=== PATIENT | female | born 1995 | race Caucasian/White ===

== ENCOUNTER 2016-10-27 21:32 | Emergency (ER) | payer OTHER ==
[~2016-10-27] VITALS: Ht 154.9 cm; Wt 84.1 kg
[~2016-10-27 21:32] MED LIST: Bactrim,Septra DS 80 PO; CONCERTA36 MG PO; DIVALPROEX SOD500 M1 PO; FLEXERIL10 MG PO; FLONASE16 G1 BOTH NARES; LORATADINE10 M2 PO; MELATONIN3 MG PO; METHYLPHENIDATE27 MG PO; MONTELUKAST SOD10 MG PO; MUCUS ER600 MG PO; NAPROSYN500 MG PO; NAPROXEN500 MG PO; NEXIUM 24HR20 M1 PO; ORTHO TRI-CY1 TABLE1 PO; RIZATRIPTAN10 M1 PO; SEROQUEL50 MG PO; VITAMIN D31000 UNIT PO; ZOLOFT50 MG PO; [UNRECOGNIZED DRUG - OTHER] PO
[2016-10-27 22:55] LABS: HEMATOCRIT 34.8 % (36.0-46.0); MCH 26.3 PG (29.0-34.0); MCHC 32.2 G/DL (30.0-36.0); MCV 81.7 FL (83-99); PLATELET COUNT 285 K/uL (156-360); RBC DIS.WIDTH-CV 13.2 % (11.8-14.6); RBC DIS.WIDTH-SD 39.3 % (39-53); RED BLOOD COUNT 4.26 M/uL (3.80-5.20); WHITE BLOOD COUNT 6.8 K/uL (4.1-10.2)
[2016-10-27 22:57] LABS: CHLORIDE 104 mEq/L (99-109); POTASSIUM 3.8 mEq/L (3.7-5.4); SODIUM 139 mEq/L (136-147)
[2016-10-27 22:58] LABS: GLUCOSE 99 mg/dL (70-99)
[2016-10-27 23:00] LABS: ANION GAP 11 MEQ/L (2-14)
[2016-10-27 23:02] LABS: GFR ESTIMATE (CALCULATED) > 59 mL/min/
[2016-10-27 23:03] LABS: UREA NITROGEN (BUN) 13 mg/dL (9-23)
[2016-10-27 23:10] LABS: QUANTITATIVE HCG < 4.0 MIU/ML
[2016-10-27 23:37] LABS: D-DIMER ELISA 0.19 mg/L FEU (< 0.57)
[2016-10-27 23:38] LABS: ADD MIUA? YES; BILIRUBIN NEGATIVE; BLOOD MODERATE; COLOR YELLOW ((YELLOW)); GLUCOSE (STRIP) NEGATIVE; KETONES TRACE; LEUKOCYTES NEGATIVE; NITRITE NEGATIVE; PROTEIN (STRIP) NEGATIVE; SPECIFIC GRAVITY 1.027 (1.000-1.030); UROBILINOGEN 0.2 MG/DL (0.2-1.0)
[2016-10-27 23:40] LABS: SERUM ETHYL ALCOHOL < 10 mg/dL
[2016-10-27 23:43] LABS: SALICYLATE < 5.0 MG/DL (15-30)
[2016-10-27 23:52] LABS: ADD MEDTOX COMMENT Y; AMPHETAMINE PRESUMPTIVE POSITIVE (500 ng/mL); BARBITURATES NEGATIVE (200 ng/mL); BENZODIAZEPINES NEGATIVE (150 ng/mL); COCAINE NEGATIVE (150 ng/mL); INTERNAL CONTROLS VALID? YES; METHADONE NEGATIVE (200 ng/mL); METHAMPHETAMINE NEGATIVE (500 ng/mL); OPIATES (MORPHINE) NEGATIVE (100 ng/mL); OXYCODONE NEGATIVE (100 ng/mL); PHENCYCLIDINE NEGATIVE (25 ng/mL); PROPOXYPHENE NEGATIVE (300 ng/mL); THC CANNABINOIDS NEGATIVE (50 ng/mL); TRICYCLIC ANTIDEPRESSANTS NEGATIVE (300 ng/mL)
[2016-10-28 00:02] LABS: AMORPHOUS PHOSPHATE CRYSTALS 2+; BACTERIA 1+ /HPF; CASTS NONE SEEN /LPF; CRYSTALS PRESENT; EPITHELIAL CELLS RARE /HPF; MUCUS NONE SEEN /LPF; RED BLOOD CELLS NONE SEEN /HPF (0-5); UCUL ADDED? NO; WHITE BLOOD CELLS RARE /HPF (0-5)
[2016-10-28] MEDS ORDERED: CIPRO250 MG PO (02:16)
[2016-10-28 02:34] VITALS: BP 122/72
[2016-10-28] MEDS ORDERED: ANUSOL HC,ANUCO25 MG PR (22:56)
[2016-10-28] MEDS ORDERED: MIRALAX255 GM PO (22:56)
== END 2016-10-28 02:36 | disposition home or self-care (01) ==
LOC: EME 21:32
PROVIDERS: Emergency Medicine
DX: N30.00 Acute cystitis without hematuria (principal); R55 Syncope and collapse; E86.0 Dehydration; F90.9 Attention-deficit hyperactivity disorder, unspecified type
CPT/HCPCS: 71020; 80048; 80164; 81003; 84702; 84999; 85027; 85379; 93005; 99281; 99285; G0480

== ENCOUNTER 2016-10-28 20:33 | Emergency (ER) | payer OTHER ==
[~2016-10-28] VITALS: Ht 152.4 cm; Wt 82.1 kg
[~2016-10-28 20:33] MED LIST changes: +CIPRO250 MG PO
[2016-10-28 21:05] LABS: HEMATOCRIT 36.4 % (36.0-46.0); MCH 27.1 PG (29.0-34.0); MCHC 33.2 G/DL (30.0-36.0); MCV 81.4 FL (83-99); MEAN PLAT.VOLUME 9.6 uM^3 (9.5-12.4); PLATELET COUNT 293 K/uL (156-360); RBC DIS.WIDTH-CV 13.1 % (11.8-14.6); RBC DIS.WIDTH-SD 37.3 % (39-53); RED BLOOD COUNT 4.47 M/uL (3.80-5.20); WHITE BLOOD COUNT 7.8 K/uL (4.1-10.2)
[2016-10-28 21:26] LABS: CHLORIDE 102 mEq/L (99-109)
[2016-10-28 21:27] LABS: SODIUM 137 mEq/L (136-147)
[2016-10-28 21:28] LABS: GLUCOSE 97 mg/dL (70-99)
[2016-10-28 21:30] LABS: ANION GAP 8 MEQ/L (2-14)
[2016-10-28 21:32] LABS: GFR ESTIMATE (CALCULATED) > 59 mL/min/
[2016-10-28 21:33] LABS: UREA NITROGEN (BUN) 11 mg/dL (9-23)
[2016-10-28 21:40] LABS: QUANTITATIVE HCG < 4.0 MIU/ML
[2016-10-28] MEDS ORDERED: MIRALAX255 GM PO (22:56)
[2016-10-28] MEDS ORDERED: ANUSOL HC,ANUCO25 MG PR (22:56)
[2016-10-28 23:11] VITALS: BP 136/85
[2016-10-29 12:41] LABS: POC NON-PRINT COM 1 ND
== END 2016-10-28 23:21 | disposition home or self-care (01) ==
LOC: EME 20:33
PROVIDERS: Physician Assistant
DX: K64.8 Other hemorrhoids (principal); K62.5 Hemorrhage of anus and rectum; Z87.442 Personal history of urinary calculi
CPT/HCPCS: 80048; 82272; 84702; 85027; 86850; 86900; 86901; 99281; 99285

== ENCOUNTER 2017-02-07 10:17 | Emergency (ER) | payer OTHER ==
[~2017-02-07] VITALS: Ht 154.9 cm; Wt 83.8 kg
[~2017-02-07 10:17] MED LIST changes: +ANUSOL HC,ANUCO25 MG PR; +MIRALAX255 GM PO
[2017-02-07 11:58] LABS: EOSINOPHIL (%) 0.4 % (0-5); HEMATOCRIT 32.8 % (36.0-46.0); IMMATURE GRANULOCYTE (%) 0.4 % (0.0-0.7); INSTRUMENT ABS NEUTROPHIL CT 5.5 K/uL; LYMPHOCYTE COUNT 2.4 K/uL (1.0-2.8); MCH 24.8 PG (29.0-34.0); MCHC 31.4 G/DL (30.0-36.0); MCV 78.8 FL (83-99); MEAN PLAT.VOLUME 10.1 uM^3 (9.5-12.4); MONOCYTE (%) 6.4 % (3-12); MONOCYTE COUNT 0.5 K/uL (0-0.8); NEUTROPHIL (%) 64.3 % (45-76); NEUTROPHIL COUNT 5.5 K/uL (1.8-6.4); PLATELET COUNT 343 K/uL (156-360); RBC DIS.WIDTH-CV 13.5 % (11.8-14.6); RBC DIS.WIDTH-SD 38.5 % (39-53); RED BLOOD COUNT 4.16 M/uL (3.80-5.20); WHITE BLOOD COUNT 8.5 K/uL (4.1-10.2)
[2017-02-07] MEDS ORDERED: SENNA-DOCUSATE1 EAC1 PO (12:06)
[2017-02-07] MEDS ORDERED: PREPARATION H C51 GM PR (12:06)
[2017-02-07 12:18] VITALS: BP 137/89
== END 2017-02-07 12:20 | disposition home or self-care (01) ==
LOC: EME 10:17
PROVIDERS: Emergency Medicine
DX: K64.9 Unspecified hemorrhoids (principal); K92.2 Gastrointestinal hemorrhage, unspecified; Z88.6 Allergy status to analgesic agent; Z88.5 Allergy status to narcotic agent; J45.909 Unspecified asthma, uncomplicated; Z87.442 Personal history of urinary calculi
CPT/HCPCS: 85025; 85027; 99281; 99283

== ENCOUNTER 2017-04-05 21:14 | Emergency (ER) | payer OTHER ==
[~2017-04-05] VITALS: Ht 162.6 cm; Wt 90.1 kg
[~2017-04-05 21:14] MED LIST changes: +PREPARATION H C51 GM PR; +SENNA-DOCUSATE1 EAC1 PO
[2017-04-05 23:10] LABS: HEMATOCRIT 35.2 % (36.0-46.0); MCH 23.1 PG (29.0-34.0); MCHC 30.1 G/DL (30.0-36.0); MCV 76.9 FL (83-99); MEAN PLAT.VOLUME 9.9 uM^3 (9.5-12.4); PLATELET COUNT 406 K/uL (156-360); RBC DIS.WIDTH-CV 14.2 % (11.8-14.6); RBC DIS.WIDTH-SD 38.8 % (39-53); RED BLOOD COUNT 4.58 M/uL (3.80-5.20); WHITE BLOOD COUNT 9.7 K/uL (4.1-10.2)
[2017-04-05 23:26] LABS: CHLORIDE 104 mEq/L (99-109); POTASSIUM 3.9 mEq/L (3.7-5.4); SODIUM 138 mEq/L (136-147)
[2017-04-05 23:28] LABS: GLUCOSE 107 mg/dL (70-99)
[2017-04-05 23:29] LABS: ANION GAP 10 MEQ/L (2-14)
[2017-04-05 23:30] LABS: TOTAL BILIRUBIN 0.2 mg/dL (0.0-1.0)
[2017-04-05 23:31] LABS: ALKALINE PHOSPHATASE 96 IU/L (3-129)
[2017-04-05 23:32] LABS: GFR ESTIMATE (CALCULATED) > 59 mL/min/
[2017-04-05 23:33] LABS: UREA NITROGEN (BUN) 18 mg/dL (9-23)
[2017-04-05 23:35] LABS: LIPASE 43 U/L (1.0-51.0)
[2017-04-05 23:43] LABS: QUANTITATIVE HCG < 4.0 MIU/ML
[2017-04-06 00:02] LABS: ADD MIUA? YES; BILIRUBIN NEGATIVE; BLOOD NEGATIVE; COLOR YELLOW ((YELLOW)); GLUCOSE (STRIP) NEGATIVE; KETONES NEGATIVE; LEUKOCYTES NEGATIVE; NITRITE NEGATIVE; PROTEIN (STRIP) NEGATIVE; SPECIFIC GRAVITY 1.024 (1.000-1.030); UROBILINOGEN 0.2 MG/DL (0.2-1.0)
[2017-04-06 00:16] LABS: BACTERIA 1+ /HPF; CALCIUM OXALATE CRYSTALS 3+ /HPF; EPITHELIAL CELLS 1+ /HPF; MUCUS TRACE /LPF; RED BLOOD CELLS 0-5 /HPF (0-5); UCUL ADDED? NO; WHITE BLOOD CELLS 0-5 /HPF (0-5)
[2017-04-06 00:50] LABS: D-DIMER ELISA 0.19 mg/L FEU (< 0.57)
[2017-04-06] MEDS ORDERED: VENTOLIN HFA18 GM IH (00:54)
[2017-04-06] MEDS ORDERED: ZOFRAN8 MG PO (00:54)
[2017-04-06 01:19] VITALS: BP 119/78
== END 2017-04-06 01:30 | disposition home or self-care (01) ==
LOC: EME 21:14
PROVIDERS: Emergency Medicine
DX: J20.8 Acute bronchitis due to other specified organisms (principal); J45.909 Unspecified asthma, uncomplicated; F31.9 Bipolar disorder, unspecified; F90.9 Attention-deficit hyperactivity disorder, unspecified type
CPT/HCPCS: 71020; 80053; 81003; 83690; 84702; 85027; 85379; 93005; 94640; 99281; 99285; J1885; J2405; J7030